=== PATIENT | female | born 1950 | race Caucasian/White ===

== ENCOUNTER 2024-01-15 18:44 | Emergency (ER) | payer BC ==
--- NOTE | 2024-01-15 19:00 | ED Physician Documentation ---
History of Present Illness - Stated complaint Stated Complaint: HIGH HR - History obtained from History obtained from: Patient - Additonal information Additional information: 73-year-old woman with no history of clear arrhythmias. She did have palpitations Previously and had a Holter monitor for she thinks 4 to 6 weeks without any arrhythmias at that time.. She has no other heart problems and does not take any meds. She was on Ozempic recently for weight loss but stopped it. Today around 4 with p.m. she became diaphoretic and felt like her heart rate was fast. She is not short of breath with it nor does she have any chest pain. She did travel recently though with a prolonged car trip. That said she has no history of thromboembolic disease. She did drink more caffeine today than is usual for her. PD PAST MEDICAL HISTORY - Present Medications Home Medications: Ambulatory Orders Medication Instructions Recorded Confirmed Metoprolol Tartrate [Lopressor] 25 mg PO Q6H PRN #60 tablet 01/15/24 - Allergies Allergies/Adverse Reactions: Allergies Allergy/AdvReac Type Severity Reaction Status Date / Time bupropion [From Wellbutrin] Allergy Anxiety Verified 01/15/24 19:12 codeine Allergy Hives Verified 01/15/24 19:12 Penicillins Allergy Rash Verified 01/15/24 19:12 PD ED PE NORMAL - Vitals Vital signs reviewed: Yes - General General: Alert and oriented X 3, No acute distress - HEENT HEENT: PERRL, EOMI - Neck Neck: Supple, no meningeal sign, No bony TTP - Cardiac Cardiac: Other (Somewhat rapid and irregular without murmur) - Respiratory Respiratory: No respiratory distress, Clear bilaterally - Abdomen Abdomen: Normal bowel sounds, Soft, Non tender - Back Back: No CVA TTP, No spinal TTP - Derm Derm: Normal color, Warm and dry - Extremities Extremities: No edema, No calf tenderness / cord - Neuro Neuro: Alert and oriented X 3 Eye Opening: Spontaneous Motor: Obeys Commands Verbal: Oriented GCS Score: 15 - Psych Psych: Normal mood, Normal affect Results - Vitals Vitals: Vital Signs - 24 hr 01/15/24 01/15/24 01/15/24 19:00 19:10 19:19 Temperature 36.4 C L Heart Rate 118 H 109 H Respiratory 20 17 Rate Blood Pressure 145/89 H 159/99 H Blood Pressure 159/99 H [Right] O2 Saturation 94 96 07/13/24 07/13/24 07/13/24 19:34 20:03 20:30 Temperature 36.7 C Heart Rate 85 87 77 Respiratory 20 18 15 Rate Blood Pressure 127/69 108/67 108/67 Blood Pressure [Right] O2 Saturation 95 96 96 Oxygen O2 Source Room air - EKG (time done) 1850 EKG releavant findings:: EKG personally interpreted by author of this note. Relevant findings are: Rate: Rate (enter#) (110) Rhythm: Other (Either sinus tach or A-fib with frequent sinus beats. Computer reading "fast sinus arrhythmia.") Grants: Normal QRS: Normal Ischemia: Normal ST segments 2007 EKG releavant findings:: EKG personally interpreted by author of this note. Relevant findings are: Rate: Rate (enter#) (82) Rhythm: NSR (w pacs) Grants: Normal Intervals: Normal CT QRS: Normal Ischemia: Normal ST segments - Labs Labs: Laboratory Tests 01/15/24 01/15/24 01/15/24 19:13 19:13 19:45 WBC 10.5 RBC 4.04 L Hgb 12.9 Hct 38.3 MCV 94.8 MCH 31.9 H MCHC 33.7 RDW 12.9 Plt Count 177 MPV 10.6 Neut # (Auto) 7.0 H Lymph # (Auto) 2.3 Clare # (Auto) 1.1 H Eos # (Auto) 0.1 Baso # (Auto) 0.0 Absolute Nucleated RBC 0.00 Nucleated RBC % 0.0 PT 11.9 INR 1.1 D-Dimer 225.4 Sodium 136 Potassium 3.9 Chloride 104 Carbon Dioxide 26 Anion Gap 6.0 BUN 18 Creatinine 0.8 Estimated GFR (MDRD) 71 L Glucose 143 H Calcium 9.5 Magnesium 1.7 Total Bilirubin 0.8 AST 31 ALT 22 Alkaline Phosphatase 174 H Total Protein 7.5 Albumin 4.1 Globulin 3.4 Albumin/Globulin Ratio 1.2 TSH 1.58 PD Medical Decision Making - ED course ED course: She presents with a symptomatic tachycardia. She is been traveling recently and been drinking more caffeine than usual. Also more alcohol and under a lot of stress.. Initial EKG done at 1850 shows fairly clear P waves with each beat but a significant amount of irregularity. We will repeated in short order. Diff erential would include A-fib or other arrhythmia. Also have to consider PE given her recent travel, but less likely given lack of shortness of breath or leg symptoms or chest pain. Subsequent workup demonstrates unremarkable CBC, INR, D-dimer, and CMP only notable for mild hyperglycemia and elevation in the alkaline phosphatase without prior values to compare with. This rules out thromboembolic disease though. After 5 mg of IV metoprolol her heart rate normalized into the 70s and a repeat EKG was done which still showed some PACs, but no other arrhythmias or ectopy and she felt much better. Departure - Departure Disposition: Home, Self Care Clinical Impression: Atrial arrhythmia Condition: Good Record reviewed to determine appropriate education?: Yes Instructions: ED Dysrhythmia Unspecified Prescriptions: Metoprolol Tartrate [Lopressor] 25 mg PO Q6H PRN #60 tablet PRN Reason: Tachycardia Comments: You were seen tonight for a symptomatic tachycardia. We presume that it is a combination of the excess caffeine, poor hydration and the other things we talked about. I wrote a prescription for as needed metoprolol at a low dose that she can take as needed if you develop it again but please try to hydrate well and cut back on the caffeine a bit. Follow-up with your doctor with consideration for echocardiography. The only other thing to note is that your alkaline phosphatase level was mildly elevated. This is nonspecific but your physician may want to recheck it over time as well to make sure it is not changing or worsening. The elevation was not very significant. Call your doctor to arrange a follow-up appointment, make the next available appointment. In the interim, return anytime if worse or if new symptoms develop. Forms: PCP List Discharge Date/Time: 01/15/24 20:37
[2024-01-15 19:16] LABS: BASOPHILS % (AUTO) 0.3 %; EOSINOPHILS # (AUTO) 0.1 10^3/uL (0.0-0.7); EOSINOPHILS % (AUTO) 1.2 %; HCT - HEMATOCRIT 38.3 % (37.0-47.0); HGB - HEMOGLOBIN 12.9 g/dL (12.0-16.0); LYMPHOCYTES # (AUTO) 2.3 10^3/uL (1.5-3.5); LYMPHOCYTES % (AUTO) 21.4 %; MEAN CORPUSCULAR HEMOGLOBIN 31.9 pg (27.0-31.0); MEAN CORPUSCULAR HGB CONC 33.7 g/dL (32.0-36.0); MEAN CORPUSCULAR VOLUME 94.8 fL (81.0-99.0); MEAN PLATELET VOLUME 10.6 fL (7.9-10.8); MONOCYTES # (AUTO) 1.1 10^3/uL (0.0-1.0); NEUTROPHILS % (AUTO) 66.8 %; PLT - PLATELET COUNT 177 10^3/uL (130-450); RED BLOOD COUNT 4.04 10^6/uL (4.20-5.40); RED CELL DISTRIBUTION WIDTH 12.9 % (12.0-15.0); WHITE BLOOD COUNT 10.5 x10^3/uL (4.8-10.8)
[2024-01-15] MEDS: METOPROLOL 5 MG/5 ML VIAL IVP STA (19:24)
[2024-01-15 19:37] LABS: ALBUMIN 4.1 g/dL (3.2-5.5); ALBUMIN/GLOBULIN RATIO 1.2 (1.0-2.2); BILIRUBIN,TOTAL 0.8 mg/dL (0.2-1.0); CALCIUM 9.5 mg/dL (8.5-10.3); CREATININE 0.8 mg/dL (0.6-1.3); MAGNESIUM 1.7 mg/dL (1.7-2.3); POTASSIUM 3.9 mmol/L (3.5-4.5); TOTAL PROTEIN 7.5 g/dL (6.4-8.9)
[2024-01-15 19:46] LABS: THYROID STIMULATING HORMONE 1.58 uIU/mL (0.34-5.60)
[2024-01-15 20:02] LABS: INR 1.1 (0.8-1.2); PT - PROTHROMBIN TIME 11.9 secs (9.9-12.6)
[2024-01-15 20:09] LABS: D-DIMER 225.4 ng/mL (200.0-255.0)
[2024-01-15 20:11] VITALS: BP 108/67; O2SAT 96
== END 2024-01-15 20:37 | disposition home or self-care (01) ==
LOC: ED 18:44
DX: I49.8 Other specified cardiac arrhythmias (principal)
CPT/HCPCS: 36415; 80053; 83735; 84443; 85025; 85379; 85610; 93005; 96374; 99284